=== PATIENT | female | born 1950 | race Caucasian/White ===

== ENCOUNTER 2018-03-18 16:42 | Emergency (ER) | payer OTHER ==
[~2018-03-18] VITALS: Ht 157.5 cm; Wt 84.8 kg
[2018-03-18 17:14] VITALS: Ht 157.5 cm; Wt 84.8 kg
[2018-03-18 19:39] LABS: BASOPHIL % 0.3 % (0-2); PLATELET COUNT 205 x10^3mcL (130-400); RED CELL DISTRIBUTION WIDTH 12.6 % (11.5-14.5)
[2018-03-18 19:47] LABS: CALCIUM 8.4 mg/dL (8.5-10.1); CARBON DIOXIDE 29.4 mmol/L (21-32); CHLORIDE SERUM 100 mmol/L (98-107); CREATININE SERUM 0.8 mg/dL (0.6-1.0); GFR1 > 60 mL/min; GLUCOSE SERUM 180 mg/dL (74-106); POTASSIUM SERUM 4.2 mmol/L (3.5-5.1); SODIUM SERUM 137 mmol/L (136-145)
[2018-03-18 19:51] LABS: ALBUMIN 3.9 g/dL (3.4-5.0); ALKALINE PHOSPHATASE 93 U/L (46-116); ALT/SGPT 29 U/L (14-59); AMYLASE 36 U/L (25-115); AST/SGOT 23 U/L (15-37); LIPASE 124 IU/L (73-393); TOTAL PROTEIN, SERUM 7.7 g/dL (6.4-8.2)
[2018-03-18 20:16] LABS: UA SPECIFIC GRAVITY <=1.005 (1.005-1.035); microscopic required? YES; urine erythrocyte 1+ (NEGATIVE)
[2018-03-18 21:38] VITALS: BP 108/57
== END 2018-03-18 21:38 | disposition home or self-care (01) ==
LOC: ED 16:42
PROVIDERS: Emergency Medicine
DX: R10.13 Epigastric pain (principal); R11.10 Vomiting, unspecified; R19.7 Diarrhea, unspecified; I10 Essential (primary) hypertension; F32.9 Major depressive disorder, single episode, unspecified; K21.9 Gastro-esophageal reflux disease without esophagitis; Z88.5 Allergy status to narcotic agent
CPT/HCPCS: J2405; J3490; J7030

== ENCOUNTER 2019-04-09 12:29 | Emergency (ER) | payer OTHER ==
[~2019-04-09] VITALS: Ht 157.5 cm; Wt 79.4 kg
[2019-04-09 12:50] VITALS: Ht 157.5 cm; Wt 79.4 kg
[2019-04-09 14:07] VITALS: BP 111/34
== END 2019-04-09 14:30 | disposition home or self-care (01) ==
LOC: ED 12:29
DX: F07.81 Postconcussional syndrome (principal); I10 Essential (primary) hypertension; K21.9 Gastro-esophageal reflux disease without esophagitis; Z98.890 Other specified postprocedural states; W01.0XXA Fall on same level from slipping, tripping and stumbling without subsequent striking against object, initial encounter; Y93.K1 Activity, walking an animal; Y92.89 Other specified places as the place of occurrence of the external cause; Y99.8 Other external cause status